=== PATIENT | female | born 1955 | race Caucasian/White ===

== ENCOUNTER → 2017-07-17 13:12 | Outpatient (CLI) | payer BC, MEDICAID ==
[2013-07-22 00:54] VITALS: BMI 35.6
[~2017-07-17 13:12] MED LIST: ENDOCET 7.5/3251 TAB PO; GLUCOPHAGE500 MG PO; HEPARIN IV; HEPARIN SODIUM IV; IBUPROFEN200 MG PO; LASIX20 MG PO; LEVOTHROID50 MCG PO; MORPHINE SULF5 MG/ML IV; NEURONTIN 300300 MG PO; PRINIVIL20 MG PO; SALINE FLUSH10 ML IV
== END | disposition home or self-care (01) ==
LOC: D.US 13:12
DX: I73.9 Peripheral vascular disease, unspecified (principal)

== ENCOUNTER 2017-07-24 11:05 | Emergency (ER) | payer BC, MEDICAID ==
[2013-07-22 00:54] VITALS: BMI 35.6
== END 2017-07-24 14:10 | disposition home or self-care (01) ==
LOC: D.ER 11:05
DX: M25.561 Pain in right knee (principal); M79.604 Pain in right leg; R60.0 Localized edema; E11.9 Type 2 diabetes mellitus without complications

== ENCOUNTER 2017-11-09 19:54 | Emergency (ER) | payer BC, MEDICAID ==
[~2017-11-09] VITALS: Ht 167.6 cm; Wt 100.9 kg
[2017-11-09 20:39] VITALS: Ht 167.6 cm; Wt 100.9 kg
[2017-11-09] MEDS ORDERED: LOPRESSOR25 MG PO (20:41)
[2017-11-09] MEDS ORDERED: GLUCOPHAGE1000 MG PO (20:41)
[2017-11-09] MEDS ORDERED: BAYER CHEWABLE81 MG PO (20:42)
[2017-11-09] MEDS ORDERED: GEMFIBROZIL600 MG PO (20:42)
[2017-11-09] MEDS ORDERED: FARXIGA5 MG PO (20:42)
[2017-11-09] MEDS ORDERED: JANUVIA25 MG PO (20:42)
[2017-11-09] MEDS ORDERED: ZOCOR40 MG PO (20:43)
[2017-11-09] MEDS ORDERED: ULTRAM50 MG PO (22:31)
[2017-11-09 23:10] VITALS: BP 129/63
== END 2017-11-09 23:11 | disposition home or self-care (01) ==
LOC: D.ER 19:54
DX: M54.2 Cervicalgia (principal); R51 Headache; V43.52XA Car driver injured in collision with other type car in traffic accident, initial encounter; Y93.89 Activity, other specified; Y92.410 Unspecified street and highway as the place of occurrence of the external cause; E11.9 Type 2 diabetes mellitus without complications; E07.9 Disorder of thyroid, unspecified; I10 Essential (primary) hypertension; J44.9 Chronic obstructive pulmonary disease, unspecified; K21.9 Gastro-esophageal reflux disease without esophagitis

== ENCOUNTER 2018-03-02 17:20 | Emergency (ER) | payer BC | END 2018-03-02 18:34 | disposition home or self-care (01) | LOC: D.ER 17:20 | DX: S22.32XA Fracture of one rib, left side, initial encounter for closed fracture (principal); V43.62XA Car passenger injured in collision with other type car in traffic accident, initial encounter; Y93.89 Activity, other specified; Y92.410 Unspecified street and highway as the place of occurrence of the external cause; Z86.73 Personal history of transient ischemic attack (TIA), and cerebral infarction without residual deficits; E11.9 Type 2 diabetes mellitus without complications; I10 Essential (primary) hypertension; J44.9 Chronic obstructive pulmonary disease, unspecified; K21.9 Gastro-esophageal reflux disease without esophagitis ==

== ENCOUNTER 2018-03-12 19:02 | Emergency (ER) | payer OTHER ==
[2018-03-02 17:22] VITALS: Ht 167.6 cm; Wt 102.1 kg
[~2018-03-12] VITALS: Ht 167.6 cm; Wt 102.1 kg
[~2018-03-12 19:02] MED LIST changes: +BAYER CHEWABLE81 MG PO; +FARXIGA5 MG PO; +GEMFIBROZIL600 MG PO; +GLUCOPHAGE1000 MG PO; +JANUVIA25 MG PO; +LOPRESSOR25 MG PO; +NORCO 7.5/325 T1 TA1 PO; +TORADOL10 MG PO; +ULTRAM50 MG PO; +ZOCOR40 MG PO
[2018-03-12] MEDS ORDERED: ULTRAM50 MG PO (20:41)
[2018-03-12] MEDS ORDERED: ROBAXIN500 MG PO (20:41)
[2018-03-12 21:09] VITALS: BP 152/59
== END 2018-03-12 21:10 | disposition home or self-care (01) ==
LOC: D.ER 19:02
DX: S22.32XA Fracture of one rib, left side, initial encounter for closed fracture (principal); V43.52XA Car driver injured in collision with other type car in traffic accident, initial encounter; Y93.89 Activity, other specified; Y92.410 Unspecified street and highway as the place of occurrence of the external cause; R07.81 Pleurodynia; Z86.73 Personal history of transient ischemic attack (TIA), and cerebral infarction without residual deficits; E11.9 Type 2 diabetes mellitus without complications; I10 Essential (primary) hypertension; J44.9 Chronic obstructive pulmonary disease, unspecified

== ENCOUNTER 2018-08-23 09:35 | Emergency (ER) | payer BC ==
[~2018-08-23] VITALS: Ht 167.6 cm; Wt 103.2 kg
[~2018-08-23 09:35] MED LIST changes: +ROBAXIN500 MG PO
[2018-08-23 09:41] VITALS: Ht 167.6 cm; Wt 103.2 kg
[2018-08-23] MEDS ORDERED: LIPITOR40 MG PO (09:44)
[2018-08-23] MEDS ORDERED: GLUCOTROL 5 MG T5 MG PO (09:45)
[2018-08-23 10:15] LABS: BASOPHILS 0.2 % (0-2); EOSINOPHILS 7.7 % (0-7); HEMATOCRIT 39.5 % (36.0-48.0); HEMOGLOBIN 13.6 g/dL (12-16); IMMATURE GRANULOCYTES 0.5 % (0-5); LYMPHOCYTES 27.4 % (15-50); MCH 31.4 pg (26.0-34.0); MCHC 34.4 g/dL (31.0-37.0); MCV 91.2 fL (80.0-100.0); MONOCYTES 9.1 % (2-11); NEUTROPHILS 55.1 % (40-80); PLATELET COUNT 234 10x3/uL (130-400); RBC 4.33 10x6/uL (4.00-5.40); RDW 13.7 % (11.5-14.5); WBC 6.3 10x3/uL (4.8-10.8)
[2018-08-23 10:27] LABS: APTT 32.2 SECONDS (22.8-39.4); INR 1.02 (0.85-1.17); PROTIME 12.9 SECONDS (11.6-15.0)
[2018-08-23 10:31] LABS: ALBUMIN 3.8 g/dL (3.4-5.0); ALKALINE PHOSPHATASE 82 U/L (46-116); ALT (SGPT) 24 U/L (10-68); BILIRUBIN - TOTAL 0.35 mg/dL (0.2-1.3); CALC OSMOLALITY 278 mosm/kg (275-300); CALCIUM 9.4 mg/dL (8.5-10.1); CARBON DIOXIDE 28.2 mmol/L (21.0-32.0); CHLORIDE - SERUM 100 mmol/L (98-107); CREATININE - SERUM 0.7 mg/dL (0.6-1.3); GLUCOSE 180 mg/dL (74-106); POTASSIUM - SERUM 4.4 mmol/L (3.5-5.1); PROTEIN - SERUM 7.8 g/dL (6.4-8.2); SODIUM 136 mmol/L (136-145); UREA NITROGEN 17 mg/dL (7-18); eGFR NON AFRICAN AMERICAN 89 mL/min (90-120)
[2018-08-23 10:44] LABS: CKMB 0.6 U/L (0.0-3.6); CREATINE KINASE 152 UL (21-215); PRO BNP 20 pg/mL (0-125); TROPONIN-I < 0.017 ng/mL (0.000-0.060)
[2018-08-23 14:28] VITALS: BP 118/55
== END 2018-08-23 19:38 | disposition home or self-care (01) ==
LOC: D.ER 09:35
PROVIDERS: Family Medicine
DX: R06.00 Dyspnea, unspecified (principal); J44.9 Chronic obstructive pulmonary disease, unspecified

== ENCOUNTER → 2018-11-29 08:57 | Outpatient (CLI) | payer BC ==
[2018-08-23 09:41] VITALS: BMI 36.7
[~2018-11-29 08:57] MED LIST changes: +GLUCOTROL 5 MG T5 MG PO; +LIPITOR40 MG PO; +SYNTHROID50 MCG PO; +XIGDUO XR 5 MG1 EACH PO
== END | disposition home or self-care (01) ==
LOC: D.HCCARDIO 08:57
PROVIDERS: ATTEND Internal Medicine Cardiovascular Disease
DX: I25.10 Atherosclerotic heart disease of native coronary artery without angina pectoris (principal)

== ENCOUNTER 2018-12-16 07:59 | Outpatient (CLI) | payer BC ==
[~2018-12-16] VITALS: Ht 167.6 cm; Wt 101.8 kg
--- NOTE | ~2018-12-16 | HEMODYNAMI ---
PATIENT:CARLOS HAYNES MEDICAL RECORD: [id number] : 51 LOCATION:[facility] ADMISSION DATE: 12/16/18 Generatedon:12/16/201817:20 Patient name: CARLOS HAYNES Patient #: [id number] : 1955 Date of study: 12/16/2018 Page: Of Hemodynamic Procedure Report Patient Data Patient Demographics Procedure consent was obtained First Name: CARLOS Gender: Female Last Name: IVY : 1955 Middle Initial: ANDRÉS Age: 63 year(s) Patient #: [id number] Race: SSN: [id number] Additional ID: [id number] Contact details Address: [address] [place] [address] State: [place] City: [facility] [place] Zip code: [address] Past Medical History Allergies Allergen Reaction Date Comments Reported Other allergy 12/16/2018 ampicillin, diphenhydramine, niacin, Contrast. Admission Admission Data Admission Date: 12/16/2018 Admission Time: 7:59 Arrival Date: 12/16/2018 Arrival Time: 0:00 Admit Source: Emergency Insurance Payor: Private department health insurance [facility] #: [id number] Height (in.): 65.75 BSA: 2.09 (m2) Height (cm.): 167 BMI: 36.21 (kg/m2) Weight (lbs.): 222.67 Weight (kg.): 101 Lab Results Lab Result Date: 12/16/2018 Lab Result Time: 9:05 Biochemistry Name Units Result Min Max BUN mg/dl 17 --(---*)-- 7 18 Creatinine mg/dl 0.7 --(*---)-- 0.6 1.3 CBC Name Units Result Min Max Hematocrit % 37.3 *-(----)-- 42 54 Hemoglobin g/dl 12.6 -*(----)-- 13.5 17.5 Procedure Procedure Types Cath Procedure Diagnostic Procedure [facility] w/Coronaries w/Grafts Procedure Description Procedure Date Procedure Date: 12/16/2018 Procedure Start Time: 17:04 Procedure End Time: 17:18 Procedure Staff Name Function Ortega Duran RN Nurse Pasha Almaguer MD Performing Physician Romario Joshi RT Monitor Corazon Emerson RT Scrub Procedure Data Cath Procedure Fluoroscopy Diagnostic fluoroscopy Total fluoroscopy Time: 2.6 time: 2.6 min min Diagnostic fluoroscopy Total fluoroscopy dose: 809 dose: 809 mGy mGy Contrast Material Contrast Material Type Amount (ml) Isovue 370 71 Entry Location Entry Primary Successful Side Size Upsize Upsize Entry Closure Succes sful Closure Location (Fr) 1 (Fr) 2 (Fr) Remarks Device Remarks Femoral Right 5 Fr Exoseal artery Estimated blood loss: 5 ml Diagnostic catheters Device Type Used For End Catheter Placement MULTIPACK Pigtail 5 Fr Procedure catheter MULTIPACK JL 4.0 5Fr Procedure catheter MULTIPACK 3DRC 5Fr Procedure catheter DIAGNOSTIC AR2 MOD 5 Fr Procedure catheter ([id number]) Procedure Complications No complications Procedure Medications Medication Administration Route Dosage Oxygen etCO2 Nasal cannula 2 l/min Heparin Flush Bag added to field 2 bags (1000units/500ml NS) 0.9% NaCl I.V. 100 ml/hr Lidocaine 2% added to field 20 Fentanyl I.V. 50 mcg Versed I.V. 1 mg Fentanyl I.V. 50 mcg Versed I.V. 1 mg Fentanyl I.V. 50 mcg Fentanyl I.V. 50 mcg Hemodynamics Rest BSA: 2.09 (m2) HGB: 12.6 (g/dl) O2 Consumption: Estimated: 198.44 (ml/min) O2 Co nsumption indexed: Estimated:94.95 (ml/min/m) Heart Rate: 74 (bpm) Snapshots Pre Cath Intra NCS Post Cath Vital Signs Time Heart Resp SPO2 etCO2 NIBP (mmHg) Rhythm Pain Sedation Rate (ipm) (%) (mmHg) Status Level (bpm) 16:49:15 87 16 96 11.2 147/82(119) NSR 0 (11) 10(A) , No pain 16:53:29 89 16 94 31.5 127/77(88) NSR 0 (11) 10(A) , No pain 16:57:43 83 16 90 28.5 116/62(95) NSR 0 (11) 10(A) , No pain 17:01:50 82 16 94 32.3 122/68(83) NSR 0 (11) 10(A) , No pain 17:06:02 65 16 93 36.7 112/65(80) NSR 0 (11) 10(A) , No pain 17:10:10 79 16 95 33.7 128/65(94) NSR 0 (11) 10(A) , No pain 17:14:24 80 16 95 35.2 122/63(92) NSR 0 (11) 10(A) , No pain 17:18:36 81 14 95 32.2 130/61(82) NSR 0 (11) 10(A) , No pain Medications Time Medication Route Dose Verified Delivered Reason Notes Eff ectiveness by by 16:48:23 Oxygen etCO2 2 Pasha Ortega Per Nasal l/min Tripp Duran RN physician cannula 16:48:31 Heparin Flush added 2 Pasha Ortega used for Bag to bags Tripp Duran RN procedure (1000units/500ml field NS) 16:48:39 0.9% NaCl I.V. 100 Pasha Ortega Per ml/hr Tripp Duran RN physician 16:48:52 Lidocaine 2% added 20ml Pasha Ortega for local to vial Tripp Duran RN anesthetic field 17:02:21 Fentanyl I.V. 50 Pasha Ortega for mcg Tripp Duran RN sedation 17:02:27 Versed I.V. 1 mg Pasha Ortega for Tripp Duran RN sedation 17:05:36 Fentanyl I.V. 50 Pasha Ortega for mcg Tripp Duran RN sedation 17:05:41 Versed I.V. 1 mg Pasha Ortega for Tripp Duran RN sedation 17:07:30 Fentanyl I.V. 50 Pasha Ortega for mcg Tripp Duran RN sedation 17:09:23 Fentanyl I.V. 50 Pasha Ortega for lew Duran RN sedation Procedure Log Time Note 16:15:02 Romario Joshi RT(R) sent for patient. Start room use. 16:36:10 Informed consent obtained and on chart 16:37:31 Admit Source: Emergency department 16:37:55 ACC Patient presents with Unstable Angina CCS Anginal Class 4--Inability to carry out any physical activity w/o angina. Angina may occur at rest. 16:37:58 Procedure Status Urgent Heart Cath (IP). 16:38:09 Time tracking: Regular hours (M-F 7:00 - 5:00) 16:38:11 Plan of Care:Hemodynamics will remain stable., Cardiac rhythm will remain stable., Comfort level will be maintained., Respiratory function will remain adequate., Patient/ family verbilizes understanding of procedure., Procedure tolerated without complication., Recovers from procedure without complications.. 16:38:16 Patient received from ED to CCL 2 Alert and oriented. Tansferred to table in Supine position. 16:38:17 ECG and BP/O2 sat monitors applied to patient. 16:38:17 Correct patient and procedure confirmed by team. 16:48:04 Vital chart was started 16:48:23 Oxygen 2 l/min etCO2 Nasal cannula was administered by Ortega Duran RN; Per physician; 16:48:31 Heparin Flush Bag (1000units/500ml NS) 2 bags added to field was administered by Ortega Duran RN; used for procedure; 16:48:39 0.9% NaCl 100 ml/hr I.V. was administered by Ortega Duran RN; Per physician; 16:48:52 Lidocaine 2% 20ml vial added to field was administered by Ortega Duran RN; for local anesthetic; 16:50:10 H&P Date Dictated: 12/16/2018 Within 30 days and on chart.. 16:50:11 Pre-procedure instructions explained to patient. 16:50:12 Pre-op teaching completed and patient verbalized understanding. 16:50:18 Family in waiting room. 16:50:23 Patient NPO since Midnight. 16:51:03 Patient allergic to Other allergyampicillin, diphenhydramine, niacin, Contrast. 16:51:04 Is the patient allergic to Iodine/contrast media? Yes. 16:51:05 Was the patient premedicated? Yes 16:51:06 Is patient on blood thinner?Yes 16:51:08 ACC The patient was administered the following blood thiners within the last 24 hours: ACCAspirin, ACCPlavix 16:51:09 Patient diabetic? Yes. 16:51:10 If diabetic: On Metformin? Yes 16:51:12 If on Metformin: Last Dose? 12/15/2018 16:51:14 Previous problem with sedation/anesthesia? No ? 16:51:15 Snore? Yes 16:51:16 Deviated septum? No 16:51:16 Sleep apnea? No 16:51:17 Sticks out tongue? Yes 16:51:17 Opens mouth fully? Yes 16:51:20 Airway obstruction? Yes COPD 16:51:23 Dentures? Yes OUT 16:51:26 Pre procedure: right dorsailis pedis pulse 2+ Normal; easily identifiable; not easily obliterated 16:51:27 Patient pain scale 0/10 ?. 16:51:34 IV patent on arrival in left antecubital with 0.9% NaCl at [facility]. 16:56:55 Lab Result : Hemoglobin 12.6 g/dl 16:56:55 Lab Result : Hematocrit 37.3 % 16:56:55 Lab Result : BUN 17 mg/dl 16:56:55 Lab Result : Creatinine 0.7 mg/dl 16:56:57 Lab results completed and on chart. 16:57:02 Right groin area was prepped with chlora-prep and draped in sterile fashion 16:57:03 Sharps counted by scrub and verified by R.N. 16:57:03 Alarms reviewed by R. N. 16:57:05 Use device set Femoral Dx 16:57:06 ACIST Syringe (61538) opened to sterile field. 16:57:07 Medline Cath Pack ([id number]) opened to sterile field. 16:57:07 Bag Decanter (2002S) opened to sterile field. 16:57:08 ACIST Manifold (71852) opened to sterile field. 16:57:08 ACIST Hand Control (28903) opened to sterile field. 16:57:10 DIAGNOSTIC Multipack 5Fr catheter set ([id number]) opened to sterile field. 16:57:11 EMERALD Guide Wire (502-482) opened to sterile field. 16:57:12 SHEATH 5FR [place] (YOP628) opened to sterile field. 16:57:13 Tegaderm 4 x 4 (1626W) opened to sterile field. 16:57:18 Baseline sample Acquired. 16:57:22 Rhythm: sinus rhythm 16:57:23 Full Disclosure recording started 16:58:48 Patient Weight : 222.67 lbs 16:58:50 Patient Height : 65.75 inches 16:58:56 Insurance Payor : Private health insurance 16:59:10 Arrival Date: 12/16/2018 12:00:00 AM 16:59:40 Diagnostic Cath Status : Urgent 17:01:37 --------ALL STOP TIME OUT------ 17:01:37 Physician arrived 17:01:38 Final Timeout: patient, procedure, and site verified with staff and physician. All members of the team are in agreement. 17:01:40 Right groin site verified by team. 17:01:42 Fire Safety Assessment: A--An alcohol-based skin anteseptic being used preoperatively., C--Open oxygen or nitrous oxide is being used., D--An ESU, laser, or fiber-optic light is being used. 17:01:45 Physical assessment completed. ASA score P 2 - A patient with mild systemic disease as per Pasha Almaguer MD. 17:01:59 2) 60-89 Mildly reduced kidney function, and other findings (as for stage 1) point to kidney disease. 17:02:21 Fentanyl 50 mcg I.V. was administered by Ortega Duran RN; for sedation; 17:02:27 Versed 1 mg I.V. was administered by Ortega Duran RN; for sedation; 17:03:10 Maximum allowable contrast dose (3.7 X eGFR X 0.75)246 ml. 17:03:13 Sedation plan: IV Moderate Sedation Medication:Versed, Fentanyl 17:04:14 Zero performed for pressure channel P1 17:04:23 Procedure started. 17:04:26 Local anesthetic to right femoral artery with Lidocaine 2% by Pasha Almaguer MD.INITIAL ACCESS ONLY 17:04:36 A 5 Fr sheath was inserted into the Right Femoral artery 17:04:45 A MULTIPACK Pigtail 5 Fr catheter was advanced over the wire and used for Procedure. 17:05:36 Fentanyl 50 mcg I.V. was administered by Ortega Duran RN; for sedation; 17:05:41 Versed 1 mg I.V. was administered by Ortega Duran RN; for sedation; 17:06:10 LV gram done using ASCENCIO 17:06:14 Injector settings: Ml/sec: 10, Volume: 20, 17:06:21 EF : 55 % 17:06:22 LV hemodynamics recorded. 17::23 Catheter exchanged over wire. 17::28 A MULTIPACK JL 4.0 5Fr catheter was advanced over the wire and used for Procedure. 17:07:14 LCA angiography performed. 17:07:30 Fentanyl 50 mcg I.V. was administered by Ortega Duran RN; for sedation; 17:08: Catheter exchanged over wire. 17::28 A MULTIPACK 3DRC 5Fr catheter was advanced over the wire and used for Procedure. 17::23 Fentanyl 50 mcg I.V. was administered by Ortega Duran RN; for sedation; 17::57 RCA angiography performed. 17:10:03 Catheter exchanged over wire. 17:10:08 A DIAGNOSTIC AR2 MOD 5 Fr catheter ([id number]) was advanced over the wire and used for Procedure. 17:11:20 SVG to Circ angiography performed. 17:11:38 SVG to RCA angiography performed. 17:12:34 Catheter removed. 17:12:35 EXOSEAL 5Fr (EX500) opened to sterile field. 17:12:43 Sheath removed intact; hemostasis achieved with Exoseal to the Right Femoral artery. 17:12:45 Procedure ended.(Physican Out) 17:14:27 Fluoroscopy time 02.60 minutes. 17:14:31 Fluoroscopy dose: 809 mGy 17:14:31 Flurop Dose total: 809 17:16:45 Dose Area Product 43026 mGy/cm. 17:16:49 Contrast amount:Isovue 370 71ml. 17:16:55 Maximum allowable dose exceeded? No. 17:16:56 Sharps counted by scrub and verified by R.N. 17:16:57 Insertion/operative site no bleeding no hematoma. 17:17:01 Post-op/insertion site Right Femoral artery dressed using a 4 x 4 and Tegaderm. 17:17:04 Post right femoral artery:stable, soft, clean and dry 17:17:05 Post Procedure Pulses reassessed and unchanged 17:17:07 Post-procedure physical assessment completed. ASA score P 2 - A patient with mild systemic disease as per Pasha Almaguer MD. 17:17:09 Post procedure rhythm: unchanged. 17:17:11 Estimated blood loss: 5 ml 17:17:13 Patient needs reinforcement of post procedure teaching. 17:17:13 Post procedure instruction explained to patient.Patient verbalizes understanding. 17:17:22 Procedure type changed to Cath procedure, Diagnostic procedure, LHC, LHC w/Coronaries w/Grafts 17:18:09 Procedure and supply charges have been captured, reviewed, submitted and are correct. 17:18:11 Procedure Complication : No complications 17:18:12 Vital chart was stopped 17:18:13 See physician's report for complete and final results. 17:18:14 Report given to PCU. 17:18:17 Patient transfered to PCU with Stretcher. 17:18:22 Full Disclosure recording stopped 17:18:22 Procedure ended. 17:18:29 End room use (Document Last) Device Usage Item Name Manufacture Quantity Catalog Hospital Part Current Minimal L ot# / Number Charge Number Stock Stock Serial# Code ACIST Acist 1 52022 557817 560427 404839 20 Syringe Medical (87544) Systems Inc Bag Microtek 1 189984 01736 700133 5 Decanter Medical Inc. () Medline Medline 1 [id number] 378720 53211 444116 5 Cath Pack ([id number]) ACIST Hand Acist 1 20063 846056 669895 545374 5 Control Medical (54529) Systems Inc ACIST Acist 1 63178 711474 236682 726298 5 Manifold Medical (30717) Systems Inc DIAGNOSTIC Cardinal 1 TX6985 532304 69982 175466 30 Multipack Health 5Fr catheter set (DL5038) EMERALD Cardinal 1 502-455 146015 406150 060788 5 Guide Wire Health (502-455) SHEATH 5FR Terumo 1 [id number] 015384 228195 448896 5 [place] (REH011) Tegaderm 4 3M 1 1626W 078077 553156 149949 5 x 4 (1626W) MULTIPACK Cardinal 1 517849 5 Pigtail 5 Health Fr catheter MULTIPACK Cardinal 1 519923 5 JL 4.0 5Fr Health catheter MULTIPACK Cardinal 1 696661 5 3DRC 5Fr Health catheter DIAGNOSTIC Cardinal 1 [id number] 179397 443772 753540 20 AR2 MOD 5 Health Fr catheter (413963P) EXOSEAL 5Fr Cardinal 1 EX500 716695 222222 053060 10 (EX500) Health Signature Audit [place] Stage Time Signature Unsigned Intra-Procedure 12/16/2018 Pasha Almaguer 5:19:46 PM Intra-Procedure 12/16/2018 Ortega Duran 5:20:07 PM RN Intra-Procedure 12/16/2018 Romario Joshi 5:20:24 PM RT(R) [place] [id number] [place] [address]
[~2018-12-16 07:59] MED LIST changes: -SYNTHROID50 MCG PO; -XIGDUO XR 5 MG1 EACH PO
[2018-12-16] MEDS ORDERED: SYNTHROID50 MCG PO (08:04)
[2018-12-16] MEDS ORDERED: XIGDUO XR 5 MG1 EACH PO (08:05)
[2018-12-16 08:18] LABS: BASOPHILS 0.5 % (0-2); HEMATOCRIT 37.3 % (36.0-48.0); HEMOGLOBIN 12.6 g/dL (12-16); IMMATURE GRANULOCYTES 0.3 % (0-5); LYMPHOCYTES 26.8 % (15-50); MCHC 33.8 g/dL (31.0-37.0); MCV 91.6 fL (80.0-100.0); MEAN PLATELET VOLUME 10.9 fL (7.4-10.4); MONOCYTES 10.4 % (2-11); PLATELET COUNT 224 10x3/uL (130-400); RBC 4.07 10x6/uL (4.00-5.40); RDW 13.6 % (11.5-14.5)
[2018-12-16 08:34] LABS: ALBUMIN 4.1 g/dL (3.4-5.0); ALKALINE PHOSPHATASE 65 U/L (46-116); ALT (SGPT) 25 U/L (10-68); BILIRUBIN - TOTAL 0.37 mg/dL (0.2-1.3); CALC OSMOLALITY 289 mosm/kg (275-300); CALCIUM 9.7 mg/dL (8.5-10.1); CARBON DIOXIDE 27.3 mmol/L (21.0-32.0); CHLORIDE - SERUM 106 mmol/L (98-107); CREATININE - SERUM 0.7 mg/dL (0.6-1.3); GLUCOSE 149 mg/dL (74-106); POTASSIUM - SERUM 4.4 mmol/L (3.5-5.1); PROTEIN - SERUM 7.7 g/dL (6.4-8.2); SODIUM 143 mmol/L (136-145); UREA NITROGEN 17 mg/dL (7-18); eGFR NON AFRICAN AMERICAN 89 mL/min (90-120)
[2018-12-16 08:43] LABS: CKMB 4.6 U/L (0.0-3.6); CREATINE KINASE 104 UL (21-215)
[2018-12-16 09:03] LABS: APTT 34.7 SECONDS (22.8-39.4); INR 1.02 (0.85-1.17); PROTIME 12.9 SECONDS (11.6-15.0)
[2018-12-16 09:23] LABS: MAGNESIUM - SERUM 1.7 mg/dL (1.8-2.4)
[2018-12-16 09:26] LABS: TROPONIN-I 1.281 ng/mL (0.000-0.060)
[2018-12-16 09:40] LABS: APPEARANCE HAZY (CLEAR); BACTERIA MODERATE /hpf (NEGATIVE); BILIRUBIN NEGATIVE (NEGATIVE); COLOR YELLOW (YELLOW); EPITHELIAL CELLS 0-5 /hpf (0-5); GLUCOSE 500 mg/dL (NEGATIVE); KETONE SMALL mg/dL (NEGATIVE); MUCUS <1+ /lpf (NONE SEEN); NITRITE NEGATIVE (NEGATIVE); PROTEIN NEGATIVE (NEGATIVE); RED CELLS - URINE RARE /hpf (0-5)
--- NOTE | 2018-12-16 17:17 | HP ---
PATIENT: CARLOS ISLAS MEDICAL RECORD: [id number] ACCOUNT: [id number] LOCATION:[facility] : 51 ADMISSION DATE: 12/16/18 PCP: THANH LOPEZ DO HISTORY AND PHYSICAL EXAMINATION DIAGNOSES: 1. Non-Q-wave myocardial infarction. 2. Coronary artery disease. 3. Previous coronary artery bypass graft surgery, 3-vessel, 5 years ago. 4. Hypertension. 5. Hyperlipidemia. 6. Diabetes. HISTORY OF PRESENT ILLNESS: Mrs. Islas presents with severe chest discomfort, just onset this morning. Troponin is elevated. She has a cardiac history of bypass surgery, 3 vessels, 5 years ago. She is pain free at this time. PHYSICAL EXAMINATION: CONSTITUTIONAL/GENERAL APPEARANCE: Well nourished, well developed, appears stated age. EYES: Lids and conjunctivae noninjected. No discharge. No pallor. ENT: Lips within normal limit. No cyanosis. No pallor. NECK: Carotid arteries, bilateral normal upstroke. No bruits. No thrills. No jugular venous pressure or distention. CERVICAL LYMPH NODES: Nontender. Nonenlarged. THYROID: Not enlarged. No nodules. CARDIOVASCULAR: Precordial exam, nondisplaced. No heaves or pericardial thrills. Rate and rhythm, regular. Heart sounds, normal S1, normal S2. No S3, no gallop, no rub. Systolic murmur, not heard. Diastolic murmur, not heard. RESPIRATORY: Respiratory effort, unlabored. Normal curvature. No thoracic deformity. No chest wall tenderness. Percussion, resonant. Auscultation, clear. No wheezes, no rales, no rhonchi. ABDOMEN: Soft, nondistended, nontender. No abdominal pain, no vomiting and normal appetite. MUSCULOSKELETAL: No joint tenderness, normal gait, normal tone. SKIN: Warm and dry. OVERALL IMPRESSION: Non-Q-wave myocardial infarction in a patient with a past history of coronary artery disease, multivessel PTCA stent in the past and bypass surgery. Most likely, she has recurrent hemodynamically significant coronary artery disease. SHE IS ALLERGIC TO IV CONTRAST. We will premedicate with prednisone and Pepcid. Plan for coronary angiography later today. TRANSINT:[id number] Voice Confirmation ID: [id number] DOCUMENT ID: [id number] HISTORY AND PHYSICAL [id number] IVY,DIANIA ANDRÉSFAY FERRER MD at 1717 CC: [id number] DICTATION DATE: 12/16/18 1012 ETHYLBENZENE CONVERTER OPERATOR: 12/16/18 1057 REG [place] [id number] [place] [id number]
[2018-12-16 17:53] VITALS: BP 117/60; Ht 167.6 cm; Wt 101.8 kg
--- NOTE | 2018-12-16 19:45 | NUR ---
ASSIST PT WITH USE OF BED ENGEL.
[2018-12-16 20:00] VITALS: BP 101/56
--- NOTE | 2018-12-16 20:10 | NUR ---
KODI CLEMENTS AND YAYO TAKEN TO PT, PLACED PT IN CLEAN GOWN.
--- NOTE | 2018-12-16 20:19 | NUR ---
ADULT FAMILY HOME PROGRAM MANAGER AT BED SIDE TO OBTAIN VITALS, PTS O2 SATS 85% RA. PLACED PT ON O2 AT 2 LITERS, ENCOURAGED PT TO TAKE DEEP BREATHS IN THROUGH THE NOSE AND OUT THROUGH THE MOUTH. O2 SATS UP TO 90%, PT DENIES WEARING HOME O2. WILL LEAVE O2 IN PLACE.
--- NOTE | 2018-12-16 22:04 | NUR ---
PT SITTING UP IN BED WATCHING TV. DENIES PAIN OR NEEDS.
--- NOTE | 2018-12-17 02:16 | NUR ---
RESTING WITH EYES CLOSED, RESPERATIONS EVEN, NO S/S DISTRESS NOTED.
[2018-12-17 04:00] VITALS: BP 113/52
--- NOTE | 2018-12-17 04:56 | NUR ---
I have reviewed this patient and I concur with the Shift Assessment completed by the Licensed Practical Nurse today this shift.
--- NOTE | 2018-12-17 08:05 | NUR ---
ASSESSMENT DONE. DENIES NEEDS
[2018-12-17 08:29] VITALS: BP 126/65
--- NOTE | 2018-12-17 10:25 | NUR ---
I have reviewed this patient and I concur with the Shift Assessment completed by the Licensed Practical Nurse today this shift.
--- NOTE | 2018-12-17 11:09 | NUR ---
DC GIVEN TO PT
--- NOTE | 2018-12-17 11:21 | NUR ---
DC HOME PER PERSONAL CAR
--- NOTE | 2018-12-17 13:38 | OP ---
PATIENT NAME: CARLOS HAYNES MEDICAL RECORD: [id number] :51 LOCATION:D.CAT ADMISSION DATE: SURGEON: FAY COELHO MD DATE OF OPERATION: 12/16/2018 PROCEDURES: 1. Left heart catheterization. 2. Selective coronary angiography. 3. Left ventriculogram. 4. Vein graft angiography. 5. HAMILTON angiography. INDICATIONS: Angina and coronary artery disease. PROCEDURE IN DETAIL: After informed consent was obtained and after a detailed description of risks, benefits as well as alternative therapies, the patient elected to proceed with angiogram and angioplasty. The right femoral area was prepped and draped in normal sterile fashion. The right femoral artery was cannulated via modified Seldinger technique with placement of 6-Romanian sheath. All catheters exchanged through this sheath. FINDINGS: Left ventriculogram was performed in standard 30-degree ASCENCIO view, reveals good cardiac wall motion throughout all segments. Overall ejection fraction estimated at 60%. SELECTIVE CORONARY ANGIOGRAPHY: 1. Left main is with no significant angiographic disease. 2. Left anterior descending has a 90% stenosis proximally. 3. Left circumflex has 80% stenosis in mid vessel. 4. Right coronary is totally occluded. 5. HAMILTON to the LAD is widely patent. Distal LAD is widely patent. 6. Vein graft to the circumflex is widely patent. Distal circumflex is widely patent. 7. Vein graft to the RCA is patent. Distal RCA is patent, however, diffusely diseased. OVERALL IMPRESSION: Mild diffuse disease of the distal vasculature and wide patency of the 3 grafts. Continue medical management of the coronary artery disease and cardiac risk factors. TRANSINT:[id number] Voice Confirmation ID: [id number] DOCUMENT ID: [id number] FAY COELHO MD at 1338 CC: [id number] DICTATION DATE: 12/16/18 1719 CUSTOMER SERVICE RECEPTIONIST: 12/17/18 0223 [facility] CLI 12/17/[address] [address]
== END 2018-12-17 11:21 | disposition home or self-care (01) ==
LOC: D.ER 07:59 → D.CATH 07:59 → D.M2 07:59 → EDSTATUS 15:54 → D.M2 17:23 → D.CATH 12-17 11:21
PROVIDERS: Family Medicine; ATTEND Internal Medicine Interventional Cardiology
DX: I25.119 Atherosclerotic heart disease of native coronary artery with unspecified angina pectoris (principal)